=== PATIENT | female | born 1950 | race Caucasian/White ===

== ENCOUNTER 2020-12-13 05:49 | Observation (INO) ==
--- NOTE | 2020-11-16 11:38 | PAT Medication Instructions ---
Medication Instructions Date of Service November 16, 2020 Home Medications ascorbic acid (vitamin C) [Vitamin C] 500 mg PO QPM atorvastatin 10 mg PO 2XWK cholecalciferol (vitamin D3) [Vitamin D3] 50 mcg PO QPM levothyroxine 100 mcg PO QAM metoprolol tartrate 25 mg PO QPM warfarin 2 mg PO WK warfarin 5 mg PO WK warfarin 7 mg PO 5XWK Continue as directed atorvastatin 10 mg PO 2XWK ASK your prescriber and surgeon warfarin 2 mg PO WK warfarin 5 mg PO WK warfarin 7 mg PO 5XWK Take morning of surgery With a small sip of water, OTHERWISE NOTHING TO EAT OR DRINK AFTER MIDNIGHT: levothyroxine 100 mcg PO QAM Take evening before surgery ascorbic acid (vitamin C) [Vitamin C] 500 mg PO QPM cholecalciferol (vitamin D3) [Vitamin D3] 50 mcg PO QPM metoprolol tartrate 25 mg PO QPM Other Notes If you have any questions please call us at [phone] or [phone] or [phone] or [phone]
--- NOTE | 2020-11-18 13:01 | Anesthesiology Consultation ---
Date of Service November 18, 2020 Assessment & Plan (1) Encounter for pre-operative examination: - COVID screening: Per assessment on 11/18: Travel screen negative, no known COVID-19 positive contacts or current COVID-19 related symptoms. Patient vaccinated. Surgeon arranging preop COVID testing. Awaiting results. - Cardiology office visit (11/07/20): "[id number] score "3".. She will continue warfarin lifelong.. She has mild persistent occasional shortness of breath, stress test 02/10/2015, Holter 02/10/2015, PFTs 01/12/2015 and echocardiogram 05/13/18-were all normal. Patient minimally symptomaticno intervention required at this time.. Edema in the legs related to venous insufficiency - improved with radiofrequency ablation of the right and left great saphenous veins.. Has problem with arthritis in right knee -contemplating knee replacement." - Check coags AM DOS (warfarin instructions per surgeon/prescriber) Chart Review Chart Review: Acceptable Risk for Surgery and Patient seen in Pre Admission Testing Teaching & Discussion Pre-Anesthesia Teaching/Discussion Notes: Instructed NPO after midnight before surgery,except medications with 15 cc of water. Medication instructions provided according to the PAT guidelines. History Surgery Operation Date: 12/13/20 12:45 Proposed Procedures p Right Total Knee Arthroplasty - Grey Garcia DO Height/Weight Height: 5 ft 9 in Weight: 89.3 kg Allergies Allergy/AdvReac Type Severity Reaction Status Date / Time No Known Allergies Allergy Verified 11/16/20 10:19 Medications Home Medications Medication Instructions Recorded Confirmed Last Taken ascorbic acid (vitamin C) [Vitamin 500 mg PO QPM 11/16/20 11/16/20 Unknown C] atorvastatin 10 mg PO 2XWK 11/16/20 11/16/20 Unknown cholecalciferol (vitamin D3) 50 mcg PO QPM 11/16/20 11/16/20 Unknown [Vitamin D3] levothyroxine 100 mcg PO QAM 11/16/20 11/16/20 Unknown metoprolol tartrate 25 mg PO QPM 11/16/20 11/16/20 Unknown warfarin 2 mg PO WK 11/16/20 11/16/20 Unknown warfarin 5 mg PO WK 11/16/20 11/16/20 Unknown warfarin 7 mg PO 5XWK 11/16/20 11/16/20 Unknown Past Medical History Medical History Atrial fibrillation on beta tanner/warfarin CAD (coronary artery disease) remote stent (~2006) Hyperlipidemia Hypertension Hypothyroidism Migraine hx Myocardial Infarction (~2006) Osteoarthritis Urinary incontinence + pessary Exercise / Class Metabolic Activity II 4-5 Yardwork/Stairs/Walk up hill (one FS (no CP, no SOB)) Past Family History Family History Other No family history of adverse response to anesthesia Past Surgical History Surgical History History of breast biopsy History of cardiac cath x2 (2006- stent, 2014- no stents) History of cholecystectomy History of colonoscopy Past Anesthesia History No Hx of Anesthesia Complications (except PONV x1 episode) and No Family Hx of Anesthesia Complications History of PONV History of PONV (x1 episode (colonoscopy)) and Hx of Motion Sickness (+ childhood) Social History Smoking Status: Never smoker Do You Dip or Chew Tobacco: No Hx Alcohol Use: Yes Alcohol type: wine alcohol intake frequency: holidays/special occasions only Hx Substance Use: No substance use type: does not use Review of Systems Patient denies chest pain, shortness of breath, dyspnea on exertion, fever, chills, cough, wheezing, palpitations. Physical Exam Vital Signs VITALS BP 114/77 P 64 TEMP 98.4 SP02 96%RA RESP 16 PHYSICAL Full cervical extension range of motion. Full TMJ range of motion. TMD 3 finger breaths Mallampati Score 3 Dentition: lower partial Lungs: clear throughout to auscultation Cardiac: regular rate and rhythm, no murmurs noted Spine: normal Carotid arteries: negative bruit Extremities: no edema Lab Results Anesthesia Preop Results Results Anesthesia Widget: WBC 5.21 K/uL (4.8-10.8) 11/18/20 Hgb 13.1 g/dL (12.0-16.0) 11/18/20 Hct 39.0 % (37-47) 11/18/20 Plt 196 K/uL (130-400) 11/18/20 Na 139 mmol/L (136-145) 11/18/20 K 3.9 mmol/L (3.5-5.1) 11/18/20 Cl 103 mmol/L (98-107) 11/18/20 CO2 27 mmol/L (21-32) 11/18/20 BUN 20 mg/dl (7-18) H 11/18/20 Creat 0.70 mg/dl (0.6-1.2) 11/18/20 Glucose Level 152 mg/dl (70-99) H 11/18/20 PT 15.9 Seconds (9.0-12.0) H 11/18/20 PTT 31.1 Seconds (21.0-31.0) H 11/18/20 INR 1.6 (0.9-1.1) H 11/18/20 HA1c 5.6 % (4.5-5.6) 11/18/20 Urine Color Yellow 11/18/20 Urine Appearance Clear (Clear) 11/18/20 Urine pH 5.0 (4.5-7.5) 11/18/20 Urine Specific [place] 1.014 (1.000-1.030) 11/18/20 Urine Protein Negative (Negative) 11/18/20 Urine Glucose (UA) Negative (Negative) 11/18/20 Urine Ketones Negative (Negative) 11/18/20 Urine Blood 1+ (Negative) H 11/18/20 Urine Nitrite Negative (Negative) 11/18/20 Urine Bilirubin Negative (Negative) 11/18/20 Urine Urobilinogen Negative (Negative) 11/18/20 Urine Leukocyte Esterase 3+ (Negative) H 11/18/20 Urine WBC (Auto) >30 /hpf (0-5) H 11/18/20 Urine RBC (Auto) 5-10 /hpf (0-4) H 11/18/20 Urine Hyaline Casts (Auto) 1-5 /lpf (0-5) 11/18/20 Urine Epithelial Cells (Auto) >30 /lpf (0-5) H 11/18/20 Urine Bacteria (Auto) Negative (Negative) 11/18/20 Blood Type A Positive 11/18/20 Antibody Screen NEGATIVE 11/18/20 Testing Electrocardiogram Date: 11/07/20 Normal sinus rhythm at 65 bpm. Chest X-Ray Date: 11/18/20 Findings: + NAD Echocardiogram Date: 05/13/18 EF 60%. Normal LV size, wall thickness and systolic function. RV systolic function is normal. RVSP 34 mmHg. No regional wall motion abnormalities. No significant valvular disease. Cardiac Catheterization Date: 12/28/14 "LAD 20/D1 50, dLCX ok, ndRCA ok, EF 55, lateral HK (? cause)" > medical management Cardiac cath findings per 11/2020 cardiology office visit note. Attempts to obtain official report unsuccessful.
--- NOTE | 2020-11-23 17:14 | History & Physical Report ---
Date of Service November 23, 2020 date of surgery: 12/13/20 procedure: Right Total Knee Arthroplasty Assessment & Plan (1) Arthritis of right knee: Further care discussed with patient and at this point in time has failed conservative measures and would like to proceed with a right total knee replacement. Plan on discharge will be home with home health physical therapy. DVT prophalaxis with TEDs, SCDs and will also resume her Coumadin post op. patient will have follow up appointment in our office two weeks post op for staple/suture removal and re-evaluation. Patient otherwise has no other questions or concerns. the risks and benefits have been discussed including, but not limited to, risk of infection, nerve injury, stiffness, loss of motion, failure to improve, etc. Reasonable outcomes and options of treatment were discussed. An explanation of appropriate alternatives to the procedure that may be advantageous were discussed and their risks and benefits, as well as the risks and benefits of not proceeding with treatment. I offered to answer any additional inquiries concern ing the treatment involved. All the patient's questions were answered. The patient is agreeable, understanding of the treatment plan and alternatives, and wishes to proceed with the treatment plan. History of Present Illness Chief Complaint: Right knee pain Primary Care Provider: NO PCP Kendra is a 70 year old who complains of right knee pain, presents for pre-op evaluation prior to a Right total knee replacement by dr Garcia at [facility]. she complains of pain and stiffness in the right knee. Currently the patient rates her pain as 6/10. The pain is described as aching, sharp and throbbing and is continuous. The symptoms are aggravated by ascending stairs, daily activities, first steps while awake walking. she is unable to take NSAIDs due to taking Coumadin. Allergies Allergy/AdvReac Type Severity Reaction Status Date / Time No Known Allergies Allergy Verified 11/16/20 10:19 Home Medications Medication Instructions Recorded Confirmed Type ascorbic acid (vitamin C) [Vitamin 500 mg PO QPM 11/16/20 11/16/20 History C] atorvastatin 10 mg PO 2XWK 11/16/20 11/16/20 History cholecalciferol (vitamin D3) 50 mcg PO QPM 11/16/20 11/16/20 History [Vitamin D3] levothyroxine 100 mcg PO QAM 11/16/20 11/16/20 History metoprolol tartrate 25 mg PO QPM 11/16/20 11/16/20 History warfarin 2 mg PO WK 11/16/20 11/16/20 History warfarin 5 mg PO WK 11/16/20 11/16/20 History warfarin 7 mg PO 5XWK 11/16/20 11/16/20 History Past Med/Surg History Medical History Atrial fibrillation on beta tanner/warfarin CAD (coronary artery disease) remote stent (~2006) Hyperlipidemia Hypertension Hypothyroidism Migraine hx Myocardial Infarction (~2006) Osteoarthritis Urinary incontinence + pessary Surgical History History of breast biopsy History of cardiac cath x2 (2006- stent, 2014- no stents) History of cholecystectomy History of colonoscopy Family History Other No family history of adverse response to anesthesia Social History Smoking Status: Never smoker Second Hand Exposure: Yes (hx); Hx Alcohol Use: Yes Alcohol type: wine Hx Substance Use: No Preferred Language: Beninese Communication Ability: Effective Varnisher Plasticoater Required: No Beliefs That Will Affect Care: None Current Living Situation: Alone and Family Feels Safe at Home: Yes Assistive Devices: Glasses Review of Systems Review of Systems: All systems reviewed & are unremarkable except as noted in HPI & below Constitutional: no fever, no chills and no sweats Respiratory: no cough and no dyspnea Cardiovascular: no chest pain, no dyspnea and no orthopnea Gastrointestinal: no abdominal pain, no nausea and no vomiting Musculoskeletal: as per Subjective / HPI Physical Exam Physical Exam: HT: 5ft 9in WT: 89.3kg Constitutional: WD/WN, vitals as above no acute distress Respiratory: normal respiratory effort, lungs clear to auscultation no respiratory distress, no labored breathing and does not use accessory muscles Cardiovascular: RRR, no murmur, no edema Gastrointestinal (Abdomen): normal bowel sounds, soft, nontender, no hepatosplenomegaly Musculoskeletal: Knee: + knee abnormal to inspection (Right Knee: ), + effusion (+1 effusion), + limited ROM of knee (ROM 0/3/110), + knee ROM with crepitation, + joint line tenderness (medial joint line) and + Bk's sign positive; no deformity, no skin erythema, no ecchymosis, no valgus laxity, no varus laxity, anterior drawer test negative, Leno's sign negative and pivot shift test negative Results & Data Results & Data ([facility]) Diagnostic Findings Right Knee X-ray: Right knee series showing advanced degenerative changes to the right knee, narrowing of the medial compartment and patello-femoral joint with patellar spurring noted, findings showing joint space narrowing of the medial compartment and patello-femoral joint, osteophyte formation and subchondral sclerosis noted. overall varus alignment. no acute bony pathology noted.
[~2020-12-13 05:49] MED LIST: ROPIVACAINE 0.5% HCL/PF 150 MG, BUPIVACAINE 0.75% MPF 20 ML, EPINEPHrine 30MG/30ML (OR ... INFIL SCH
[2020-12-13] MEDS ORDERED: METOCLOPRAMIDE HCL 10 MG TABLET PO SCH (06:00)
[2020-12-13] MEDS ORDERED: oxyCODONE HCL 10 MG TABCR (OxyCONTIN) PO SCH (06:00)
[2020-12-13] MEDS ORDERED: LR 500ML BOLUS, THEN 15ML/HR IV SCH (06:00)
[2020-12-13] MEDS ORDERED: GABAPENTIN 300 MG CAP PO SCH (06:00)
[2020-12-13] MEDS ORDERED: ACETAMINOPHEN 500 MG TAB PO SCH (06:00)
[2020-12-13] MEDS ORDERED: ROPIVACAINE 0.5% HCL/PF 150 MG, BUPIVACAINE 0.75% MPF 20 ML, EPINEPHrine 30MG/30ML (OR ... INFIL SCH (06:00)
[2020-12-13] MEDS ORDERED: ceFAZolin 2000MG 2,000 MG/15 ML SYR IV SCH (06:00)
[2020-12-13] MEDS ORDERED: FAMOTIDINE 20 MG TAB PO SCH (06:00)
[2020-12-13] MEDS ORDERED: CeleBREX 200 MG CAP PO SCH (06:00)
[2020-12-13] MEDS ORDERED: BUPIVACAINE 0.5 % 5 MG/1 ML PF 10ML VIAL ONE (06:22)
[2020-12-13] MEDS ORDERED: EPINEPHrine INJ 1 MG/ML AMP ONE (06:22)
[2020-12-13] MEDS ORDERED: BUPIVACAINE 0.25% 30 ML VIAL ONE ×2 (06:22→09:05)
[2020-12-13 06:30] LABS: INR 1.4 (0.9-1.1); Partial Thromboplastin Ratio 1.2; Prothrombin Time 13.7 Seconds (9.0-12.0)
[2020-12-13] MEDS ORDERED: MIDAZOLAM HCL 1 MG/ML 2ML VIAL ONE ×2 (07:04)
--- NOTE | 2020-12-13 07:24 | History & Physical Bridge Note ---
Date of Service December 13, 2020 History & Physical Bridge Note I have examined the patient, reviewed the History & Physical and in the interval since the performance of the History & Physical I have noted the following changes of clinical significance: no changes noted
[2020-12-13] MEDS ORDERED: ORTHO JOINT ANESTHETIC ONE (07:43)
[2020-12-13] MEDS ORDERED: HYDROmorphone INJ 1 MG/ML SYRINGE IV PRN (08:04)
[2020-12-13] MEDS ORDERED: fentaNYL citrate 100 MCG/2 ML VIAL IV PRN (08:04)
[2020-12-13] MEDS ORDERED: ATROPINE SULFATE 0.1 MG/ML 10ML SYR IV PRN (08:04)
[2020-12-13] MEDS ORDERED: PROMETHAZINE HCL 12.5 MG in SODIUM CHLORIDE 0.9% 50 ML IV PRN (08:04)
[2020-12-13] MEDS ORDERED: ePHEDrine sulfate 50 MG/ML AMP IV PRN (08:04)
[2020-12-13] MEDS ORDERED: ONDANSETRON INJ 2 MG/ML 2 ML VIAL IV PRN (08:04)
[2020-12-13] MEDS ORDERED: ONDANSETRON INJ 2 MG/ML 2 ML VIAL ONE (08:44)
[2020-12-13] MEDS ORDERED: LIDOCAINE 2% 2 ML VIAL/AMP(20MG/ML) INFIL ONE (08:44)
[2020-12-13] MEDS ORDERED: PROPOFOL IV EMULSION 10 MG/ML 20 ML VIAL IV ONE (08:44)
--- NOTE | 2020-12-13 09:28 | Operative Report ---
Post Operative Report Pre & Post Diagnosis Operation Date: 12/13/20 08:15 Pre-Op Diagnosis: Osteoarthritis, Right Knee Post-Op Diagnosis: Osteoarthritis, Right Knee I identified the patient and participated in the time-out.: Yes Procedure Operation Date: 12/13/20 08:15 Actual Procedures p Right Total Knee Arthroplasty(Right) utilizing [employer] persona TKA size 9 standard femur E tibia 10 medial constrained polytwenty 8 oval patella- Grey Garcia DO Surgeon Grey Garcia DO Bottler Daniel ZEPEDA Estimated Blood Loss 5 Findings Consistent with Post-Op Diagnosis Patient presents with severe end-stage tricompartmental degenerative joint disease of the right knee no response to conservative management patient noted evidence of subchondral sclerosis marginal osteophytes subchondral cystic changes eburnated [id number] moderate moderate to large effusion Specimens Bone and cartilage Drains Medium bore Hemovac Anesthesia Type MAC Spinal Regional Complications none Disposition Accompanied Patient To Recovery: No Disposition: Recovery Room Indications Patient presents after failed attempted conservative management clinic physical therapy anti-inflammatories relative rest activity modifications corticosteroid injections viscosupplementation the above intraoperative findings were noted. Description of Procedure After proper prepping and draping of the Right lower extremity anterior midline incision was made over the region of the extensor extensor mechanism after meticulous hemostasis was obtained and maintained in subcutaneous tissues a medial parapatellar incision was made The patella was subluxed lateralward the medial lateral gutter were cleaned from any hypertrophic synovitis and scar tissue of the distal femoral block was placed and the distal femoral osteotomy cut was made subsequently the chamfers anterior and posterior osteotomy cuts wer e made utilizing the 4-in-1 block the tibia was subsequently subluxed anteriorward medial and ateral meniscal remnants were excised in their entirety remnants of the anterior and posterior cruciate ligaments were excised in their entirety excellent exposure of the proximal tibia was obtained the tibial osteotomy guide was placed on the proximal tibial osteotomy cut was made once again the knee was irrigated with copious amounts of sterile saline solution the patella was subsequently everted lateralward thickened scar tissue around the patella was removed the patella was subsequently cut utilizing a freehand technique and was drilled prepared for final preparation and placement of patella socially flexion-extension gaps were checked and the equal and symmetric trials were placed to the appropriate femoral and tibial trials with poly-spacer being placed for equal flexion and extension gaps and full range of motion including extension to 0 and flexion to 140 the trial components after having been taken to recovery range of motion was subsequently removed meticulous hemostasis was obtained and maintained subsequently a knee block injection of joint cocktail including ropivacaine 0.5% 150 mg. Bupivacaine 0.5% epinephrine 1-200,030 mL's toradol 30 mg dexamethasone 4 mg ketamine 10 mg clonidine 100 micrograms normal saline solution 30 mg was infiltrated into the soft tissues of the posterior knee medial lateral gutters and periosteal synovium special attention was paid to protect neurovascular structures at all times subsequently trial components having been removed the knee was irrigated with sterile saline solution. debris was removed the proximal tibia was subsequently prepared and was made ready for the placement of the tibial component tibial component was also cemented and tamped into position the femoral component was subsequently placed and cemented in the position the patellar component was subsequently cemented in position because hemostasis once again obtained and maintained wound having been thoroughly irrigated with debridement and debridement lavage was performed as well as a medial parapatellar incision closed with #1 Vicryl in interrupted fashion subcutaneous was closed with #2 Vicryl skin was closed with skin clips. PA-C was necessary for prepping and drapping as well as wound closure of deep fascia Sub cutaneous tissue and skin and was necessary for the case. A sterile compressive dressing was placed patient was taken to recovery in stable condition of report dictated by Jose I attest to the content of the Intraoperative Record and any orders documented therein. Any exceptions are noted below. I attest to the content of the Intraoperative Record and any orders documented therein. Any exceptions are noted below.
--- NOTE | 2020-12-13 10:58 | XRay Report ---
XR knee RT 1 or 2V routine HISTORY: 70 years-old Female Surgical Post Op right knee total joint arthroplasty COMPARISON: None TECHNIQUE: 2 views the right knee FINDINGS: Right knee total joint arthroplasty and patella resurfacing. Surgical drainage catheter is noted simone g with expected postoperative soft tissue swelling and deep tissue air. No acute fracture or unexpect ed opaque foreign body. IMPRESSION: Right knee total joint arthroplasty with expected postoperative changes. ACT 112: Negative or not required by law. The above report was generated using voice recognition software. It may contain grammatical, syntax o r spelling errors. Electronically signed by: Baljinder Alves M.D. 12/13/2020 10:56 AM
[2020-12-13] MEDS ORDERED: HYDROmorphone INJ 0.5 MG/0.5 ML SYR IV PRN (11:16)
[2020-12-13] MEDS ORDERED: bisacodyL 10 MG SUPP PR PRN (11:16)
[2020-12-13] MEDS ORDERED: oxyCODONE HCL IR 5 MG TAB (IMMEDIATE RELEASE) PO PRN (11:16)
[2020-12-13] MEDS ORDERED: MAGNESIUM HYDROXIDE SUSP 30 ML UDC PO PRN (11:16)
[2020-12-13] MEDS ORDERED: NALOXONE HCL 0.4 MG/1 ML VIAL/CARP IV PRN (11:16)
--- NOTE | 2020-12-13 11:37 | Hospitalist Consultation ---
Date of Consultation December 13, 2020 Assessment & Plan (1) Arthritis of right knee: s/p Right Total Knee Arthroplasty Defer to primary team for pain management and dvt prophylaxis. (2) Atrial fibrillation: Paroxysmal Atrial Fibrillation Patient will resume metoprolol 25 mg PO PM this evening. Tartrate was ordered, this will be changed to metoprolol succinate. Patient has a CHADSVASC2 score of 3 (4 if you include HTN). Will recommend bridging with Lovenox therapeutic range until INR is therapeutic for 24 hours. Restart coumadin in AM. will defer to primary team. (3) CAD (coronary artery disease): PR in 2004. Patient has been doing well since. nORMAL 2d ECHO: 2014 (4) Hyperlipidemia: resume statin (5) Hypertension: BP has been elevated, will closely monitor. (6) Hypothyroidism: resume levothyroxine in AM. will need to confirm tomorrow if patient took her levothyroxine today. If not, should take double the dose tomorrow to catch up. History of Present Illness Reason for Consultation: Medical management Requesting Physician: Grey Garcia DO Attending Physician: Grey Garcia DO History of Present Illness 70 yo female reports feeling a tad drowsy after surgery today. She reports she was nauseous and getting motion sicness when she was being wheeled up to the room. Patient reports that she is here for a TKA of her right knee. She reports that she had an PR in 2004 due to a "kinked" artery. She also reports having atrial fibrillation for the past few years, in which she takes warfarin for anticoagulation. She reports that she tried a DOAC in the past, but it made her feel funny, and she prefers taking "old medicine" like warfarin. Aside from nausea, atient reports no pain at this time. Allergies Allergy/AdvReac Type Severity Reaction Status Date / Time No Known Allergies Allergy Verified 12/13/20 06:21 Home Medications Medication Instructions Recorded Confirmed Type ascorbic acid (vitamin C) [Vitamin 500 mg PO QPM 11/16/20 12/13/20 History C] atorvastatin 10 mg PO 2XWK 11/16/20 12/13/20 History cholecalciferol (vitamin D3) 50 mcg PO QPM 11/16/20 12/13/20 History [Vitamin D3] levothyroxine 100 mcg PO QAM 11/16/20 12/13/20 History metoprolol tartrate 25 mg PO QPM 11/16/20 12/13/20 History warfarin 2 mg PO WK 11/16/20 12/13/20 History warfarin 5 mg PO WK 11/16/20 12/13/20 History warfarin 7 mg PO 5XWK 11/16/20 12/13/20 History enoxaparin [Lovenox] 100 mg SUBCUT Q12H 12/13/20 12/13/20 History Patient History Medical History (Updated 12/13/20 @ 11:59 by Byron Sinclair) Atrial fibrillation on beta tanner/warfarin CAD (coronary artery disease) remote stent (~2006) Hyperlipidemia Hypertension Hypothyroidism Migraine hx Myocardial Infarction (~2006) Osteoarthritis Urinary incontinence + pessary Surgical History History of breast biopsy History of cardiac cath x2 (2006- stent, 2014- no stents) History of cholecystectomy History of colonoscopy Family History Other No family history of adverse response to anesthesia Social History Smoking Status: Never smoker Second Hand Exposure: Yes (hx); Do You Dip or Chew Tobacco: No; Tobacco Cessation Education Requested by Patient: No Hx Alcohol Use: Yes Alcohol type: wine Hx Substance Use: No Preferred Language: Estonian Communication Ability: Effective Mail Teller Required: No Beliefs That Will Affect Care: None Current Living Situation: Alone and Family Other Information That Helps Us Care for You: No Feels Safe at Home: Yes Safety Concerns: Feels Safe At This Time Assistive Devices: Walker Assistive Devices Comment: lower partial Review of Systems Constitutional: no fever and no sweats Eyes: no blind spots and no diplopia Ear, Nose, Mouth, Throat: no ear pain and no tinnitus Respiratory: no cough Cardiovascular: no chest pain and no chest pain with activity Gastrointestinal: + nausea and + vomiting; no abdominal pain Genitourinary: no dysuria and no urinary frequency Musculoskeletal: no radicular pain Integumentary: no acne and no rash Neurologic: no gait abnormality Psychiatric: no behavioral changes and no hopelessness Endocrine: no fatigue Allergy / Immunological: no GI upset with certain foods Physical Exam Constitutional: WD/WN, vitals as above Eyes: PERRL, conjunctivae normal, anicteric sclerae ENMT: external ear and nose normal, oropharynx normal Neck: trachea midline, no thyromegaly Respiratory: normal respiratory effort, lungs clear to auscultation Cardiovascular: RRR, no murmur, no edema Gastrointestinal (Abdomen): normal bowel sounds, soft, nontender, no hepatosplenomegaly Musculoskeletal: no cyanosis or clubbing, extremities motor strength 5/5 Neurologic: PERRL, EOMI, accommodation nl, no face palsy, no dysarthria Psychiatric: A+Ox3, euthymic affect Lymphatic: no cervical or axillary lymphadenopathy Results & Data Results & Data ([facility]) Vital Signs (Past 12 Hours) Vital Signs Temp Pulse Pulse Pulse Resp BP Pulse Ox 12/13/20 11:33 36.4 C L 56 L 16 154/88 H 95 12/13/20 10:40 36.4 C L 48 L 13 154/71 H 96 12/13/20 10:30 36.1 C L 62 18 121/67 97 12/13/20 10:20 55 L 14 109/63 96 12/13/20 10:10 36.4 C L 56 L 16 107/64 97 12/13/20 06:10 36.8 C 50 L 20 173/79 H 97 PG Care Time/CCT Total # of Minutes Spent Total Time Spent with Patient: Total time spent is greater than 50% in coordination of care (as documented) at patient's floor/unit and/or counseling patient: Coding Level of Care Code 86301 Inpt Consult Level 4 Diagnoses Arthritis of right knee M17.11 Atrial fibrillation I48.91 CAD (coronary artery disease) I25.10 Hyperlipidemia E78.5 Hypertension I10 Hypothyroidism E03.9 Time Spent (min) 40
--- NOTE | 2020-12-13 11:39 | Anesthesiology Progress Note ---
Date of Service December 13, 2020 Anesthesia Post Procedure Vital Signs Vital Signs: Temp Pulse Pulse Resp BP Pulse Ox 12/13/20 10:30 36.1 C L 62 18 121/67 97 12/13/20 10:20 55 L 14 109/63 96 12/13/20 10:10 36.4 C L 56 L 16 107/64 97 12/13/20 06:10 36.8 C 50 L 20 173/79 H 97 Transfer of Care Handoff Completed per policy Notes Mental Status: alert / awake / arousable and participated in evaluation Patient Amnestic to Procedure: Yes Nausea / Vomiting: adequately controlled Pain: adequately controlled Airway Patency, RR, SpO2: stable & adequate BP & HR: stable & adequate Hydration State: stable & adequate Anesthetic Complications: no major complications apparent and Pt Satisfied with anesthetic care
[2020-12-13] MEDS: ONDANSETRON INJ 2 MG/ML 2 ML VIAL IV PRN (11:58)
[2020-12-13] MEDS: ACETAMINOPHEN 500 MG TAB PO SCH ×2 (15:22→22:35)
[2020-12-13] MEDS: ceFAZolin 2000MG 2,000 MG/15 ML SYR IV SCH ×2 (17:11→23:24)
[2020-12-13] MEDS: WARFARIN SOD 10 MG TAB PO SCH (17:11)
[2020-12-13] MEDS: SODIUM CHLORIDE 0.9% 1000ML 1,000 ML IV SCH ×2 (18:34→22:35)
[2020-12-13] MEDS ORDERED: SENNA 8.6 MG TAB PO SCH (21:00)
[2020-12-13] MEDS ORDERED: METOPROLOL TARTRATE 25 MG TAB PO SCH (21:00)
[2020-12-13] MEDS ORDERED: METOPROLOL SUCC 25MG EXT REL TAB PO SCH (21:00)
[2020-12-13] MEDS ORDERED: CHOLECALCIFEROL 1,000 UNITS 25 MCG TAB PO SCH (21:00)
[2020-12-13] MEDS: DOCUSATE SODIUM 100 MG CAP PO SCH (21:05)
[2020-12-14 05:37] LABS: Hematocrit (blood only) 31.5 % (37-47); Hemoglobin 10.4 g/dL (12.0-16.0); Mean Corpuscular Volume 90.8 fL (80-100); Mean Platelet Volume 10.4 fL (7.4-10.4); Platelet Count 177 K/uL (130-400); RDW Coefficient of Variation 12.9 % (11.5-14.5); RDW Standard Deviation 42.6 fL (36.4-46.3); Red Blood Count 3.47 M/uL (4.2-5.4); White Blood Count 9.19 K/uL (4.8-10.8)
[2020-12-14] MEDS: ACETAMINOPHEN 500 MG TAB PO SCH ×2 (06:03→13:54)
[2020-12-14 06:05] LABS: BUN Creatinine Ratio 24.2 (10-20); Calcium 8.7 mg/dl (8.5-10.1); Creatinine Clr Calc Pharmacy 90.3 ml/min; Est GFR (African American) 102.2 ml/min; Est GFR (Non-African American) 88.2 ml/min; Potassium 4.1 mmol/L (3.5-5.1)
[2020-12-14] MEDS ORDERED: LEVOTHYROXINE SODIUM 100 MCG TABLET PO SCH (06:30)
--- NOTE | 2020-12-14 07:33 | Orthopedic Progress Note ---
Date of Service December 14, 2020 Assessment & Plan (1) History of total right knee replacement: POD #1 s/p Right TKA pt/ot dvt proph with YURI/SCD/bridging with Lovenox and Coumadin. she was given 10 mg Coumadin last night and will receive Lovenox bid until her INR is 2.0. she does check these at home and is aware of her instructions and feels comfortable with this. plan for d/c home with OPPT, will recheck after PT today. Admission and Anticipated Discharge Date Admission Date: December 13, 2020 Subjective POD #1 s/p Right TKA Review of Systems Constitutional: no fever, no chills and no sweats Respiratory: no cough and no dyspnea Cardiovascular: no chest pain and no dyspnea Gastrointestinal: no abdominal pain, no nausea and no vomiting Physical Exam Constitutional: WD/WN, vitals as above no acute distress Musculoskeletal: Right Leg: NVDI, calf SNT, negative sophie sign. DP palpable, able to wiggle toes/ankle movement without difficulty. dressing clean dry and intact. Results & Data ([facility]) Vital Signs (Past 12 Hours) Vital Signs Temp Pulse Resp BP Pulse Ox 12/14/20 01:56 36.4 C L 45 L 15 105/64 95 12/13/20 23:06 36.5 C 48 L 15 104/63 98 12/13/20 21:08 51 L 97/61 L 94 12/13/20 20:07 36.4 C L 55 L 15 109/66 98 Laboratory Results Laboratory Results WBC 9.19 K/uL (4.8-10.8) 12/14/20 04:54 RBC 3.47 M/uL (4.2-5.4) L 12/14/20 04:54 Hgb 10.4 g/dL (12.0-16.0) L 12/14/20 04:54 Hct 31.5 % (37-47) L 12/14/20 04:54 MCV 90.8 fL (80-100) 12/14/20 04:54 MCH 30.0 pg (25-34) 12/14/20 04:54 MCHC 33.0 g/dL (32-36) 12/14/20 04:54 RDW Std Deviation 42.6 fL (36.4-46.3) 12/14/20 04:54 RDW Coeff of Nevaeh 12.9 % (11.5-14.5) 12/14/20 04:54 Plt Count 177 K/uL (130-400) 12/14/20 04:54 MPV 10.4 fL (7.4-10.4) 12/14/20 04:54 PT 13.7 Seconds (9.0-12.0) H 12/13/20 06:08 INR 1.4 (0.9-1.1) H 12/13/20 06:08 APTT 32.0 Seconds (21.0-31.0) H 12/13/20 06:08 PTT Ratio 1.2 12/13/20 06:08 Sodium 141 mmol/L (136-145) 12/14/20 04:54 Potassium 4.1 mmol/L (3.5-5.1) 12/14/20 04:54 Chloride 109 mmol/L (98-107) H 12/14/20 04:54 Carbon Dioxide 31 mmol/L (21-32) 12/14/20 04:54 Anion Gap 1.0 (3-11) L 12/14/20 04:54 BUN 17 mg/dl (7-18) 12/14/20 04:54 Creatinine 0.69 mg/dl (0.6-1.2) 12/14/20 04:54 Est Cr Clr Drug Dosing 90.3 ml/min 12/14/20 04:54 Est GFR ( Amer) 102.2 ml/min 12/14/20 04:54 Est GFR (Non-Af Amer) 88.2 ml/min 12/14/20 04:54 BUN/Creatinine Ratio 24.2 (10-20) H 12/14/20 04:54 Glucose 143 mg/dl (70-99) H 12/14/20 04:54 Calcium 8.7 mg/dl (8.5-10.1) 12/14/20 04:54 [facility]-19 [facility] 12/13/20 Unknown SARS-CoV-2, RNA, NAAT NEGATIVE (NEGATIVE) 12/13/20 Unknown Impressions Knee X-Ray 12/13/20 10:21 XR knee RT 1 or 2V routine HISTORY: 70 years-old Female Surgical Post Op right knee total joint arthroplasty COMPARISON: None TECHNIQUE: 2 views the right knee FINDINGS: Right knee total joint arthroplasty and patella resurfacing. Surgical drainage catheter is noted along with expected postoperative soft tissue swelling and deep tissue air. No acute fracture or unexpected opaque foreign body. IMPRESSION: Right knee total joint arthroplasty with expected postoperative changes. ACT 112: Negative or not required by law. The above report was generated using voice recognition software. It may contain grammatical, syntax or spelling errors. Electronically signed by: Baljinder Alves M.D. 12/13/2020 10:56 AM
[2020-12-14 08:28] LABS: INR 1.5 (0.9-1.1); Prothrombin Time 14.8 Seconds (9.0-12.0)
[2020-12-14] MEDS ORDERED: MULTIVITAMIN TAB PO SCH (09:00)
[2020-12-14] MEDS ORDERED: ENOXAPARIN 100 MG/1ML SYR SQ SCH (09:00)
[2020-12-14] MEDS: DOCUSATE SODIUM 100 MG CAP PO SCH (09:22)
[2020-12-14] MEDS: ONDANSETRON INJ 2 MG/ML 2 ML VIAL IV PRN (13:55)
[2020-12-14] MEDS: WARFARIN SOD 10 MG TAB PO SCH (15:50)
[2020-12-16] MEDS ORDERED: ATORVASTATIN 10 MG TAB PO SCH (09:00)
--- NOTE | 2020-12-21 07:56 | Discharge Summary ---
Date of Service December 21, 2020 Admission HPI Per Admitting Provider Kendra is a 70 year old who complains of right knee pain, presents for pre-op evaluation prior to a Right total knee replacement by dr Garcia at [facility]. she complains of pain and stiffness in the right knee. Currently the patient rates her pain as 6/10. The pain is described as aching, sharp and throbbing and is continuous. The symptoms are aggravated by ascending stairs, daily activities, first steps while awake walking. she is unable to take NSAIDs due to taking Coumadin. Admission Exam Per Admitting Provider Physical Exam: HT: 5ft 9in WT: 89.3kg Constitutional: WD/WN, vitals as above no acute distress Respiratory: normal respiratory effort, lungs clear to auscultation no respiratory distress, no labored breathing and does not use accessory muscles Cardiovascular: RRR, no murmur, no edema Gastrointestinal (Abdomen): normal bowel sounds, soft, nontender, no hepatosplenomegaly Musculoskeletal: Knee: + knee abnormal to inspection (Right Knee: ), + effusion (+1 effusion), + limited ROM of knee (ROM 0/3/110), + knee ROM with crepitation, + joint line tenderness (medial joint line) and + Bk's sign positive; no deformity, no skin erythema, no ecchymosis, no valgus laxity, no varus laxity, anterior drawer test negative, Leno's sign negative and pivot shift test negative Principal Diagnosis Right knee osteoarthritis Discharge Data Allergies Allergy/AdvReac Type Severity Reaction Status Date / Time No Known Allergies Allergy Verified 12/13/20 06:21 Consultations 12/08/20 16:27 Consult Hospitalist Routine Procedures Performed Operation Date: 12/13/20 08:15 Actual Procedures p Right Total Knee Arthroplasty(Right) - Grey Garcia DO Ordered Studies 12/13/20 05:00 US - OR guided needle placemen Routine Hospital Course (1) Arthritis of right knee: Date of Service December 14, 2020 Assessment & Plan (1) History of total right knee replacement: POD #1 s/p Right TKA pt/ot dvt proph with YURI/SCD/bridging with Lovenox and Coumadin. she was given 10 mg Coumadin last night and will receive Lovenox bid until her INR is 2.0. she does check these at home and is aware of her instructions and feels comfortable with this. plan for d/c home with OPPT, will recheck after PT today. Admission and Anticipated Discharge Date Admission Date: December 13, 2020 Subjective POD #1 s/p Right TKA Review of Systems Constitutional: no fever, no chills and no sweats Respiratory: no cough and no dyspnea Cardiovascular: no chest pain and no dyspnea Gastrointestinal: no abdominal pain, no nausea and no vomiting Physical Exam Constitutional: WD/WN, vitals as above no acute distress Musculoskeletal: Right Leg: NVDI, calf SNT, negative sophie sign. DP palpable, able to wiggle toes/ankle movement without difficulty. dressing clean dry and intact. Results & Data ([facility]) Vital Signs (Past 12 Hours) Vital Signs Temp Pulse Resp BP Pulse Ox 12/14/20 01:56 36.4 C L 45 L 15 105/64 95 12/13/20 23:06 36.5 C 48 L 15 104/63 98 12/13/20 21:08 51 L 97/61 L 94 12/13/20 20:07 36.4 C L 55 L 15 109/66 98 Laboratory Results Laboratory Results WBC 9.19 K/uL (4.8-10.8) 12/14/20 04:54 RBC 3.47 M/uL (4.2-5.4) L 12/14/20 04:54 Hgb 10.4 g/dL (12.0-16.0) L 12/14/20 04:54 Hct 31.5 % (37-47) L 12/14/20 04:54 MCV 90.8 fL (80-100) 12/14/20 04:54 MCH 30.0 pg (25-34) 12/14/20 04:54 MCHC 33.0 g/dL (32-36) 12/14/20 04:54 RDW Std Deviation 42.6 fL (36.4-46.3) 12/14/20 04:54 RDW Coeff of Nevaeh 12.9 % (11.5-14.5) 12/14/20 04:54 Plt Count 177 K/uL (130-400) 12/14/20 04:54 MPV 10.4 fL (7.4-10.4) 12/14/20 04:54 PT 13.7 Seconds (9.0-12.0) H 12/13/20 06:08 INR 1.4 (0.9-1.1) H 12/13/20 06:08 APTT 32.0 Seconds (21.0-31.0) H 12/13/20 06:08 PTT Ratio 1.2 12/13/20 06:08 Sodium 141 mmol/L (136-145) 12/14/20 04:54 Potassium 4.1 mmol/L (3.5-5.1) 12/14/20 04:54 Chloride 109 mmol/L (98-107) H 12/14/20 04:54 Carbon Dioxide 31 mmol/L (21-32) 12/14/20 04:54 Anion Gap 1.0 (3-11) L 12/14/20 04:54 BUN 17 mg/dl (7-18) 12/14/20 04:54 Creatinine 0.69 mg/dl (0.6-1.2) 12/14/20 04:54 Est Cr Clr Drug Dosing 90.3 ml/min 12/14/20 04:54 Est GFR ( Amer) 102.2 ml/min 12/14/20 04:54 Est GFR (Non-Af Amer) 88.2 ml/min 12/14/20 04:54 BUN/Creatinine Ratio 24.2 (10-20) H 12/14/20 04:54 Glucose 143 mg/dl (70-99) H 12/14/20 04:54 Calcium 8.7 mg/dl (8.5-10.1) 12/14/20 04:54 COVID-19 Eval Order Covid19 IDNow [facility] 12/13/20 Unknown SARS-CoV-2, RNA, NAAT NEGATIVE (NEGATIVE) 12/13/20 Un Total Time Total Time Spent Total Time Spent (In Minutes): 5 Discharge Plan Discharge Items Patient Disposition: Home - Self-Care Reason For Visit: Osteoarthritis, Right Knee Discharge Diagnosis: RIGHT TOTAL KNEE REPLACEMENT Activity: Per Instructions section Lifting: Wait until after follow-up appointment Exercise/Sports: Wait until after follow-up appointment Weightbearing Comment: WBAT WITH WALKER Non-emergency contact: Surgeon Call non-emergency contact if: your symptoms worsen, your temperature is above 101, your wound has increased redness, your wound has increased drainage and your wound pain has increased Follow-up/Referrals: Rui Merrill D.O. [Primary Care Provider] - Diet: Regular Addtl Attending Provider Instructions: ACTIVITY RECOMMENDATIONS: SELF CARE INSTRUCTIONS AFTER TOTAL KNEE REPLACEMENT A. You may need to continue a physical therapy program after discharge from the hospital. There are several options available to you. Your doctor will assist you in selecting the best one for you. 1. An out-patient facility 2 to 3 times a week for therapy or home therapy. 2. Continue working on all exercises taught to you in the hospital. Your goals should be to increase bending of your knee to 90 degrees and beyond and to fully straighten your knee. B. You may progress at your own pace from walking with a walker or crutches to a cane; then to no assistive devices. C. Make walking a part of your daily routine. Be up as much as comfortable with rest periods throughout the day. Rest with leg elevation is very important. Use the ice wrap frequently for the first 3-4 weeks. D. There are no restrictions on activities. You may ride in a car, shop, participate in business planner and all social activities. E. Wear the long elastic stockings (YURI hose) 20 hours a day for 2 weeks after surgery. They can be removed several times a day for laundering and for a bath. F. You may shower, no tub baths until cleared by your doctor. SPECIAL CARE INSTRUCTIONS: VERY IMPORTANT TO READ AND REVIEW A. There are a few signs you need to watch for after you are home. Call [facility] if you notice any of the followin. Increased severe knee pain. Some pain is expected especially when you exercise. 2. Increased swelling in your leg or knee; pain or swelling of the calf muscle in either lower leg. 3. Any fluid drainage from the incision. 4. Shortness of breath or chest pain. B. Please call [facility] at if you have any concerns or questions about your operation or recovery. The doctor or his nurse will return your call promptly. C. You must take antibiotics before dental work, bladder, bowel or other surgery. Your doctor will provide you with a permanent care to carry describing this precaution. IMPORTANT: * REMEMBER TO TAKE ASPIRIN, 81 MG, TWICE DAILY FOR 4 WEEKS UNLESS OTHERWISE DIRECTED. THIS IS YOUR BLOOD THINNER. * HIGH RISK PATIENTS MAY BE PRESCRIBED A STRONGER BLOOD THINNER. THIS WILL BE PROVIDED AT DISCHARGE. * CALL IF INCREASED PAIN, REDNESS, DRAINAGE OR FEVER GREATER THAT 101. * WEAR YURI HOSE 20 HOURS PER DAY FOR 2 WEEKS. * DERMABOND Prineo- This is a mesh tape dressing that is covered with glue. It should remain in place until the incision is properly healed, usually 10-14 day s. This dressing is designed to naturally slough off. You may trim the excess mesh tape as it peels off. Incision may be briefly wet in a shower. Dry immediately by blotting with a clean, dry towel. Do not bath or swim until instructed by your doctor. Do not scratch, rub, or pick at the dressing. Do not apply any topical ointments or lotions until dressing is completely removed and/or instructed by your doctor. There may be a small piece of suture material at one end of your incision. Do not pull or trim this. If it is bothersome or catching on clothing, you may cover it with a band-aid. IF INCISION IS LEAKING THROUGH DRESSING, CALL THE OFFICE . FOLLOW UP VISIT: If appointment is not already scheduled: Please call [facility] to make a follow-up appointment for 2 weeks after your surgery at . Pending Studies at Discharge: No Stand-Alone Forms: My [facility], Opioid Pain Management, Smoking Cessation Medications and DC Order Prescriptions: New cefadroxil 500 mg capsule 500 mg PO BID Qty: 14 RF: 0 tramadol 50 mg tablet 50 mg PO .Q4h-6h PRN (Reason: pain) Qty: 30 RF: 0 ondansetron HCl [Zofran] 4 mg tablet 4 mg PO Q8H PRN (Reason: nausea and vomiting) Qty: 20 RF: 0 acetaminophen [Tylenol Extra Strength] 500 mg Tablet 1,000 mg PO Q8 Qty: 60 RF: 0 docusate sodium 100 mg Capsule 100 mg PO BID Qty: 60 RF: 0 Continued atorvastatin 10 mg Tablet 10 mg PO 2XWK RF: 0 levothyroxine 100 mcg Tablet 100 mcg PO QAM RF: 0 warfarin 2 mg Tablet 2 mg PO WK RF: 0 warfarin 5 mg Tablet 5 mg PO WK RF: 0 warfarin 5 mg Tablet 7 mg PO 5XWK RF: 0 metoprolol tartrate 25 mg Tablet 25 mg PO QPM RF: 0 ascorbic acid (vitamin C) [Vitamin C] 500 mg Tablet 500 mg PO QPM RF: 0 cholecalciferol (vitamin D3) [Vitamin D3] 50 mcg (2,000 unit) Tablet 50 mcg PO QPM RF: 0 enoxaparin [Lovenox] 100 mg/mL Syringe 100 mg SUBCUT Q12H RF: 0 Discharge Orders: Discharge Order (Routine); Ordered 12/14/20 Ordered By: Jonathon Dumont Admission Data Admit Date/Time: 12/13/20 10:21 Attending Provider: Grey Garcia Admit Provider: Grey Garcia Primary Care Provider: Rui Merrill Other Providers: Byron Sinclair Other Interventions: Discharge Summary Assessment (RN) Last Done: 12/14/20 12:11
== END 2020-12-14 16:49 | disposition home or self-care (01) ==
LOC: ASU 05:49 → 3E 05:49
DX: M17.11 Unilateral primary osteoarthritis, right knee; I48.91 Unspecified atrial fibrillation; I10 Essential (primary) hypertension; Z20.822 Contact with and (suspected) exposure to COVID-19; E78.5 Hyperlipidemia, unspecified; I25.10 Atherosclerotic heart disease of native coronary artery without angina pectoris; E03.9 Hypothyroidism, unspecified; Z79.01 Long term (current) use of anticoagulants; Z79.899 Other long term (current) drug therapy; M19.90 Unspecified osteoarthritis, unspecified site; Z95.818 Presence of other cardiac implants and grafts; I25.2 Old myocardial infarction